=== PATIENT | female | born 1970 | race Caucasian/White ===

== ENCOUNTER → 2023-09-28 08:59 | Outpatient (REF) | payer BC, SELFPAY | LOC: WDC 08:59 | PROVIDERS: ATTENDING PHYSICIAN Advanced Practice Midwife; FAMILY PHYSICIAN Physician Assistant | DX: Z12.31 Encounter for screening mammogram for malignant neoplasm of breast (principal) | CPT/HCPCS: 77063; 77067 ==

== ENCOUNTER → 2024-10-03 09:04 | Outpatient (REF) | payer BC, SELFPAY | LOC: WDC 09:04 | PROVIDERS: ATTENDING PHYSICIAN Physician Assistant | DX: Z12.31 Encounter for screening mammogram for malignant neoplasm of breast (principal) | CPT/HCPCS: 77063; 77067 ==